=== PATIENT | female | born 1940 | race Caucasian/White ===

== ENCOUNTER 2018-07-28 19:03 | Emergency (ER) | payer MEDICARE, OTHER ==
[~2018-07-28] VITALS: Ht 165.1 cm; Wt 67.1 kg
[~2018-07-28 19:03] MED LIST: LISI1TAB9 PO; MEMA10TA PO; METF-440 PO; OMEG1CAP55 PO; OMEP40CA37 PO; SITA100T PO
[2018-07-28 19:11] VITALS: BP 148/96
[2018-07-28] MEDS ORDERED: CEFTRIAXONE 1 G VIAL ONE ×2 (19:37→19:48)
[2018-07-28] MEDS ORDERED: LIDOCAINE 1% INJ 50 ML MDV IJ ONE (19:38)
[2018-07-28] MEDS ORDERED: LIDOCAINE /MPF 1% VIAL 5 ML VIAL ONE (19:49)
--- NOTE | 2018-07-28 19:59 | NUR ---
PT MEDICATED BY JONES SEPULVEDA
[2018-07-28] MEDS ORDERED: CEFTRIAXONE 1 G VIAL IM ONE (20:00)
== END 2018-07-28 20:07 | disposition home or self-care (01) ==
LOC: ER 19:06
DX: S61.211A Laceration without foreign body of left index finger without damage to nail, initial encounter (principal); L03.114 Cellulitis of left upper limb; I10 Essential (primary) hypertension; Z85.3 Personal history of malignant neoplasm of breast; Z98.890 Other specified postprocedural states; Z88.0 Allergy status to penicillin; W26.0XXA Contact with knife, initial encounter; Y93.89 Activity, other specified; Y92.89 Other specified places as the place of occurrence of the external cause; Y99.8 Other external cause status
CPT/HCPCS: 96372; 99283; A4606; J0696; J3490 ×2; Z7610

== ENCOUNTER 2023-10-23 12:35 | Emergency (ER) | payer MEDICARE, OTHER ==
[~2023-10-23] VITALS: Ht 170.2 cm; Wt 80.7 kg
[~2023-10-23 12:35] MED LIST changes: +LISI1TAB32 PO; -LISI1TAB9 PO; +OMEP40CA21 PO; -OMEP40CA37 PO
[2023-10-23 12:43] VITALS: TEMP 101.7
[2023-10-23 14:03] LABS: BASOPHILS % (AUTO) 0.1 % (0.0-2.0); HEMATOCRIT 41 % (33-45); HEMOGLOBIN 13.8 g/dL (11.5-14.8); LYMPHOCYTES # (AUTO) 0.3 K/uL (0.8-4.8); LYMPHOCYTES % (AUTO) 3.9 % (20.0-44.0); MEAN CORPUSCULAR HEMOGLOBIN 32 PG (26.0-33.0); MEAN CORPUSCULAR HGB CONC 34 g/dl (31.0-36.0); MEAN CORPUSCULAR VOLUME 93 fL (82-100); MONOCYTES # (AUTO) 0.6 K/uL (0.1-1.30); MONOCYTES % (AUTO) 8.4 % (2.0-12.0); NEUTROPHILS # (AUTO) 6.4 K/uL (1.8-8.9); NEUTROPHILS % (AUTO) 87.6 % (43.0-81.0); PLATELET COUNT (AUTO) 153 K/uL (150-450); RED BLOOD CELL COUNT(AUTO) 4.38 MIL/uL (4.0-5.2); RED CELL DISTRIBUTION WIDTH 13.5 % (11.5-15.0); WHITE BLOOD COUNT (AUTO) 7.3 K/uL (4.3-11.0)
[2023-10-23 14:17] LABS: INR 0.98 (0.91-1.10); PARTIAL THROMBOPLASTIN TIME 28.7 SEC (24.3-34.3); PROTHROMBIN TIME 10.4 SECS (9.2-11.1)
[2023-10-23 14:28] LABS: ALANINE AMINOTRANSFERASE 22 U/L (12-78); ALBUMIN 3.7 g/dL (3.4-5.0); ALKALINE PHOSPHATASE 64 U/L (46-116); ASPARTATE AMINOTRANSFERASE 28 U/L (15-37); BILIRUBIN,DIRECT 0.1 mg/dL (0.0-0.2); BILIRUBIN,TOTAL 0.5 mg/dL (0.2-1.0); CARBON DIOXIDE 27 mmol/L (21-32); CHLORIDE 94 mmol/L (98-107); CREATININE 0.7 mg/dL (0.6-1.3); GLUCOSE 185 mg/dL (74-106); POTASSIUM 3.9 mmol/L (3.5-5.1); SODIUM SERUM 129 mmol/L (136-145); UREA NITROGEN, BLOOD 19 mg/dL (7-18)
[2023-10-23 14:30] LABS: LACTIC ACID 1.3 mmol/L (0.4-2.0)
[2023-10-23] MEDS ORDERED: IBUP-1955 PO ×2 (16:09→16:33)
[2023-10-23] MEDS ORDERED: OSEL75CA PO ×2 (16:09→16:33)
[2023-10-23] MEDS ORDERED: ACETAMINOPHEN 325 MG TABLET PO ONE (16:30)
[2023-10-23] MEDS ORDERED: ACETAMINOPHEN 325 MG TABLET ONE (16:31)
[2023-10-23 17:42] VITALS: BP 145/75; O2SAT 96
== END 2023-10-23 16:35 | disposition home or self-care (01) ==
LOC: ER 12:59
DX: J10.1 Influenza due to other identified influenza virus with other respiratory manifestations (principal); R50.9 Fever, unspecified; I10 Essential (primary) hypertension; E11.9 Type 2 diabetes mellitus without complications; F03.90 Unspecified dementia, unspecified severity, without behavioral disturbance, psychotic disturbance, mood disturbance, and anxiety; Z88.0 Allergy status to penicillin; Z79.84 Long term (current) use of oral hypoglycemic drugs; Z79.899 Other long term (current) drug therapy; Z20.822 Contact with and (suspected) exposure to COVID-19
CPT/HCPCS: 36415; 71045-TC; 80048-TC; 80076-TC; 83605-TC; 84484-TC; 85025-TC; 85730-TC; 87040-TC